=== PATIENT | male | born 1990 | race Native Hawaiian/Other Pacific Islander ===

== ENCOUNTER 2016-10-19 11:45 | Emergency (ER) | payer SELFPAY ==
[~2016-10-19] VITALS: Ht 172.7 cm; Wt 112.0 kg
--- NOTE | 2016-10-19 12:11 | NUR ---
DR ESTRADA AT THE BEDSIDE FOR EVAL AND EXAM.
--- NOTE | 2016-10-19 12:45 | NUR ---
Patient discharged to home in stable conditon. Written and verbal after care instructions given. Patient verbalizes understanding of instructions.
[2016-10-19 12:46] VITALS: BP 150/97
== END 2016-10-19 12:45 | disposition home or self-care (01) ==
LOC: ER 11:45
DX: S02.81XA Fracture of other specified skull and facial bones, right side, initial encounter for closed fracture (principal); X58.XXXA Exposure to other specified factors, initial encounter; Y93.89 Activity, other specified; Y92.9 Unspecified place or not applicable; Y99.9 Unspecified external cause status
CPT/HCPCS: A4663